=== PATIENT | female | born 1980 | race Caucasian/White ===

== ENCOUNTER 2018-09-13 11:04 | Emergency (ER) | payer MEDICAID ==
[~2018-09-13] VITALS: Wt 79.8 kg
[2018-09-13] MEDS ORDERED: ONDANSETRON 4 MG INJ IV STA (12:00)
[2018-09-13] MEDS ORDERED: KETOROLAC 15 MG INJ IV STA (12:00)
[2018-09-13] MEDS ORDERED: SOD CHLORIDE 0.9% 1,000 ML IV STA (12:00)
--- NOTE | 2018-09-13 12:24 | ERD ---
ER Documentation Chief Complaint Chief Complaint LEFT FLANK PAIN X1 MONTH, ON AND OFF, NAUSEA HPI 38-year-old woman complains of right (not left) flank pain times 1 month, she states earlier in the month she had daily hematuria which resolved a few weeks ago. She states recently she developed dysuria and increased urinary frequency and states the right flank pain has improved somewhat although occurs intermittently. She denies fevers or chills, no weight loss, no chest pain or shortness of breath. Patient has a history of cholecystectomy and appendectomy. ROS All systems reviewed and are negative except as per history of present illness. Medications Home Meds Active Scripts Ibuprofen* (Motrin*) 600 Mg Tab, 600 MG PO Q8 PRN for PAIN AND/OR INFLAMMATION, #30 TAB Prov:EBONI SHAH MD 09/13/18 Fluconazole* (Fluconazole*) 200 Mg Tablet, 200 MG PO DAILY, #1 TAB Prov:EBONI SHAH MD 09/13/18 Cephalexin* (Keflex*) 500 Mg Capsule, 500 MG PO QID for 5 Days, CAP Prov:EBONI SHAH MD 09/13/18 Allergies Allergies: Coded Allergies: No Known Drug Allergy (Verified Allergy, Mild, 11/16/09) PMhx/Soc Obesity History of Surgery: Yes (choleysystectomy, appendectomy) Hx Miscellaneous Medical Probl: Yes (fatty liver) Hx Alcohol Use: No Hx Substance Use: No Hx Tobacco Use: No Smoking Status: Never smoker FmHx Family History: No diabetes Physical Exam Vitals Vital Signs Date Temp Pulse Resp B/P (MAP) Pulse Ox O2 O2 Flow FiO2 Time Delivery Rate 09/13/18 64 14 119/72 100 Room Air 12:38 (88) 09/13/18 97.5 82 17 119/67 98 11:13 (84) Physical Exam GENERAL: Well-developed, well-nourished, well-hydrated, in no apparent distress, looks nontoxic in appearance HEENT: Moist mucous membranes, pink conjunctiva, no cervical spine tenderness or step-off deformities, no goiter, no jaundice or icterus, extraocular movements intact without pain. No submandibular induration, and no pharyngeal erythema NEURO: Alert and oriented 3, cranial nerves II through XII intact bilaterally, pupils equal round reactive to light, no focal deficits or facial asymmetry, sensation intact distally Strength 5/5 in upper and lower extremities bilaterally CARDIAC: Regular rate and rhythm, no murmurs rubs or gallops LUNGS: Clear bilaterally no wheezing crackles or stridor ABDOMEN: Soft nontender, no guarding, no rigidity, no rebound, no psoas sign no obturator sign. Normoactive bowel sounds SKIN: Warm and dry to touch, no abrasions, contusions, or hematomas, no lacerations, no ecchymosis, no target lesions, and without ulcers EXTREMITIES: No clubbing cyanosis or edema, calves are bilaterally symmetrical, no Homans sign, no popliteal cord sign. Distal pulses equal and bilateral PSYCH: Normal affect without agitation or irritability Result Diagram: 09/13/18 1211 09/13/18 1211 Results 24 hrs Laboratory Tests Test 09/13/18 12:11 White Blood Count 6.9 10^3/ul Red Blood Count 4.77 10^6/ul Hemoglobin 13.9 g/dl Hematocrit 43.1 % Mean Corpuscular Volume 90.4 fl Mean Corpuscular Hemoglobin 29.1 pg Mean Corpuscular Hemoglobin Concent 32.3 g/dl Red Cell Distribution Width 14.1 % Platelet Count 299 10^3/UL Mean Platelet Volume 10.6 fl Immature Granulocytes % 0.100 % Neutrophils % 50.8 % Lymphocytes % 35.5 % Monocytes % 7.5 % Eosinophils % 5.4 % Basophils % 0.7 % Nucleated Red Blood Cells % 0.0 /100WBC Immature Granulocytes # 0.010 10^3/ul Neutrophils # 3.5 10^3/ul Lymphocytes # 2.5 10^3/ul Monocytes # 0.5 10^3/ul Eosinophils # 0.4 10^3/ul Basophils # 0.1 10^3/ul Nucleated Red Blood Cells # 0.0 10^3/ul Urine Color YELLOW Urine Clarity CLOUDY Urine pH 6.0 Urine Specific [place] 1.018 Urine Ketones NEGATIVE mg/dL Urine Nitrite NEGATIVE mg/dL Urine Bilirubin NEGATIVE mg/dL Urine Urobilinogen NEGATIVE mg/dL Urine Leukocyte Esterase 1+ Jass/ul Urine Microscopic RBC 9 /HPF Urine Microscopic WBC 9 /HPF Urine Squamous Epithelial Cells FEW /HPF Urine Bacteria FEW /HPF Urine Mucus FEW /HPF Urine Hemoglobin NEGATIVE mg/dL Urine Glucose NEGATIVE mg/dL Urine Total Protein NEGATIVE mg/dl Sodium Level 141 mmol/L Potassium Level 3.7 mmol/L Chloride Level 102 mmol/L Carbon Dioxide Level 27 mmol/L Anion Gap 12 Blood Urea Nitrogen 11 mg/dl Creatinine 0.67 mg/dl Est Glomerular Filtrat Rate mL/min > 60 mL/min Glucose Level 92 mg/dl Calcium Level 9.5 mg/dl Total Bilirubin 0.2 mg/dl Direct Bilirubin 0.00 mg/dl Indirect Bilirubin 0.2 mg/dl Aspartate Amino Transf (AST/SGOT) 40 IU/L Alanine Aminotransferase (ALT/SGPT) 34 IU/L Alkaline Phosphatase 101 IU/L Total Protein 8.6 g/dl Albumin 4.6 g/dl Globulin 4.00 g/dl Albumin/Globulin Ratio 1.15 Lipase 70 U/L Current Medications Medications Dose Sig/Jeannine Start Time Status Last (Trade) Ordered Route PRN Stop Time Admin Dose Reason Admin Sodium 1,000 ml @ Q1H STAT 09/13/18 DC 09/13/18 Chloride 1,000 mls/hr IV 12:00 12:19 09/13/18 12:59 Ondansetron 4 mg ONCE STAT 09/13/18 DC 09/13/18 HCl (Zofran IV 12:00 12:20 Inj) 09/13/18 12:01 Ketorolac 15 mg ONCE STAT 09/13/18 DC 09/13/18 Tromethamine IV 12:00 12:20 (Toradol) 09/13/18 12:01 Cephalexin 500 mg ONCE ONCE 09/13/18 09/13/18 (Keflex) PO 13:30 13:15 09/13/18 13:31 Procedures/MDM IV line was established patient was placed on media monitor rhythm strip revealed a sinus rhythm at about 80 bpm with upright P and T waves. Patient was afebrile I administered 1 L normal saline IV, Toradol 15 mg IV, Zofran 4 mg IV CBC and electrolytes were normal, urinalysis positive for infection, liver function tests normal Patient has had intermittent right flank pain which is been overall decreasing over the last 30 days. She is also recently developed a UTI so she will be treated with antibiotics and analgesics as an outpatient. I did tell her if her symptoms continue or worsen she may be a better candidate for CT scan imaging and she will have to follow-up with PMD for continued outpatient management. Differential diagnoses considered, included but not limited to acute coronary syndrome, pulmonary embolism, aortic dissection, abdominal aortic aneurysm, sepsis, stroke, meningitis, encephalitis, pneumonia, appendicitis, cholecystitis, bowel obstruction, pyelonephritis, nephrolithiasis, cystitis, as well as metabolic, hematologic, and electrolyte abnormalities. As well as abscess, cellulitis, fractures, and dislocations. Patient feels much better at this time, and vital signs are normal, symptoms have improved. I did give strict instructions to return to the ED if symptoms continue or worsen, patient will otherwise follow-up with primary care physician. Patient understood instructions and agreed to plan. Disclaimer: Inadvertent spelling and grammatical errors are likely due to E HR/dictation software use and do not reflect on the overall quality of patient care. Also, please note that the electronic time recorded on this note does not necessarily reflect the actual time of the patient encounter. Departure Diagnosis: Primary Impression: Flank pain Additional Impression: Acute UTI Condition: Good EBONI SHAH MD Sep 13, 2018 12:24
[2018-09-13] MEDS ORDERED: FLUC200T52 PO (13:02)
[2018-09-13] MEDS ORDERED: CEPH-443 PO (13:02)
[2018-09-13] MEDS ORDERED: IBUP-1542 PO (13:02)
[2018-09-13] MEDS ORDERED: CEPHALEXIN 500 MG CAP PO ONE (13:30)
[2018-09-13 13:33] VITALS: BP 117/86; PULSE 74; RESP 16
== END 2018-09-13 13:50 | disposition home or self-care (01) ==
LOC: E/R 11:04
DX: N39.0 Urinary tract infection, site not specified (principal)
CPT/HCPCS: 36415; 80053; 81001; 83690; 85025; 87086; 96374; 96375; J1885; J2405; J7030; Z7502; Z7610